=== PATIENT | male | born 1965 | race Two or more races ===

== ENCOUNTER 2020-07-15 14:24 | Day surgery (SDC) | payer OTHER ==
[~2020-07-15] VITALS: Ht 167.6 cm; Wt 99.4 kg
[~2020-07-15 14:24] MED LIST: BUPIVACAINE/PF 0.25% ONE; EPINEPHRINE 1 MG/ML, 1ML ONE; EPINEPHRINE TOPICAL SOLN 1 MG/ML, 30ML ONE; IBUP200C8 PO; LIDOCAINE/PF 1%, 30ML ONE
[2020-07-15] MEDS ORDERED: CHLORHEXIDINE 15 ML UDC MM ONE (15:00)
[2020-07-15] MEDS ORDERED: LACTATED RINGERS 1,000 ML IV SCH (15:00)
[2020-07-15] MEDS ORDERED: NO HOME MEDS PER PT (15:04)
[2020-07-15 15:07] VITALS: BP 145/85
[2020-07-15] MEDS ORDERED: FENTANYL PF 250 MCG/5ML ONE (15:31)
[2020-07-15] MEDS ORDERED: CEFAZOLIN 1,000 MG ONE (16:20)
[2020-07-15] MEDS ORDERED: PROPOFOL 10 MG/ML, 20ML ONE (16:20)
[2020-07-15] MEDS ORDERED: ONDANSETRON 2MG/ML, 2ML ONE (16:20)
[2020-07-15] MEDS ORDERED: DEXAMETHASONE 4 MG/ML, 1ML ONE (16:20)
[2020-07-15] MEDS ORDERED: METOCLOPRAMIDE 5 MG/ML, 2ML ONE (16:20)
[2020-07-15] MEDS ORDERED: SUCCINYLCHOLINE 20 MG/ML, 10ML ONE (16:20)
[2020-07-15] MEDS ORDERED: morphine SULFATE/PF 1 MG/ML, 10ML ONE (16:26)
[2020-07-15] MEDS ORDERED: METHOCARBAMOL 1,000 MG in DEXTROSE 5% 100 ML IV PRN (17:00)
[2020-07-15] MEDS ORDERED: EPHEDRINE 50 MG/ML, 1ML IVPush PRN (17:00)
[2020-07-15] MEDS ORDERED: HYDROmorphone 1 MG/ML, 1ML INJ IVPush PRN (17:00)
[2020-07-15] MEDS ORDERED: ACETAMINOPHEN 325 MG TABLET PO PRN (17:00)
[2020-07-15] MEDS ORDERED: LORazepam 2 MG/ML, 1ML IVPush PRN (17:00)
[2020-07-15] MEDS ORDERED: HALOPERIDOL 5 MG/ML IV PRN (17:00)
[2020-07-15] MEDS ORDERED: hydrALAzine 20 MG/ML, 1ML IV PRN (17:00)
[2020-07-15] MEDS ORDERED: EPHEDRINE 50 MG/ML, 1ML IM PRN (17:00)
[2020-07-15] MEDS ORDERED: LABETALOL 5MG/ML, 20ML IV PRN (17:00)
[2020-07-15] MEDS ORDERED: PROMETHAZINE 25 MG/ML, 1ML IVPush PRN (17:00)
[2020-07-15] MEDS ORDERED: OXYcodone 5 MG/5 ML ORAL.SOL UDC PO PRN (17:00)
[2020-07-15] MEDS ORDERED: MEPERIDINE/PF 25MG/0.5ML IVPush PRN (17:00)
[2020-07-15] MEDS ORDERED: FENTANYL PF 100 MCG/2ML IV PRN (17:00)
[2020-07-15] MEDS ORDERED: ONDANSETRON 2MG/ML, 2ML IVPush PRN (17:00)
== END 2020-07-15 18:30 | disposition home or self-care (01) ==
LOC: OR 14:24
PROVIDERS: ATTEND Orthopaedic Surgery
DX: M23.222 Derangement of posterior horn of medial meniscus due to old tear or injury, left knee (principal); M94.262 Chondromalacia, left knee; M25.562 Pain in left knee; Z72.89 Other problems related to lifestyle; Z79.899 Other long term (current) drug therapy; Z98.890 Other specified postprocedural states; Z83.3 Family history of diabetes mellitus; Z20.828 Contact with and (suspected) exposure to other viral communicable diseases
CPT/HCPCS: 29881; J0171; J0330; J0690; J1100; J2274; J2405; J2704; J2765; J3010; U0003